=== PATIENT | male | born 1965 | race Caucasian/White ===

== ENCOUNTER 2021-10-13 09:55 | Emergency (ER) | payer OTHER, SELFPAY ==
[2021-10-13 10:05] VITALS: BP 144/93; PULSE 68; RESP 18; TEMP 36.4; O2SAT 100
--- NOTE | 2021-10-13 11:03 | ED.EYEPROB ---
HPI - Eye Problem General Chief complaint: Eye Problems Stated complaint: Left Eye Issues x5 Months Time Seen by Provider: 10/13/21 10:17 Source: patient and family Mode of arrival: ambulatory Limitations: no limitations History of Present Illness HPI Narrative: This is a 56 year old male that presents to the ER for left eye irritation for months. Reports he was initially evaluated by an well head pumper and diagnosed with a corneal abrasion. He felt better after treatment initially. Reports intermittent eye irritation that has been worsening over the last couple of weeks. No known injuries. Reports over the last couple of days the irritation in constant. Reports tearing. His vision is blurry. He also saw another eye doctor in the area a couple weeks ago who ruled out glaucoma. He has an appointment with Dr. Benavides in a couple of weeks. Denies fever, edema or vomiting. Related Data Allergies Allergy/AdvReac Type Severity Reaction Status Date / Time No Known Allergies Allergy Verified 10/13/21 10:08 Review of Systems Review of Systems: CONSTITUTIONAL: Denies fever EYES: Reports visual changes, redness, and discharge. All systems reviewed & are unremarkable except as noted in HPI and below Exam Narrative: GENERAL: Well-appearing, well-nourished, and in no acute distress. HEAD: Normocephalic, atraumatic. EYES: PERRLA and EOMI. Left eye tearing and conjunctival injection. Eyelid everted, no foreign bodies noted. Positive fluorescein stain uptake with 3mm corneal abrasion noted over the left pupil. Pressure left eye 12, right eye 17. Visual acuity 20/200 left eye, 20/100 right eye EXTREMITIES: Normal range of motion. No edema. SKIN: Warm, dry, no rash. NEURO: No focal deficits. Alert and oriented x3. PSYCH: Normal mood and affect Course Consultations Consultation #1: Spoke with Dr. Gilmore with [facility] ophthalmology. Patient will be called for a follow-up appointment in the clinic today. Date: 10/13/21 Time: 12:04 Vital Signs Vital signs: Vital Signs Temperature 97.6 F 10/13/21 10:05 Pulse Rate 68 10/13/21 10:05 Respiratory Rate 18 10/13/21 10:05 Blood Pressure 144/93 H 10/13/21 10:05 Pulse Oximetry 100 10/13/21 10:05 Temperature 97.6 F 10/13/21 10:05 Pulse Rate 68 10/13/21 10:05 Respiratory Rate 18 10/13/21 10:05 Blood Pressure 144/93 H 10/13/21 10:05 Pulse Oximetry 100 10/13/21 10:05 MDM - Eye Problem MDM Narrative Medical decision making narrative: Patient presents to the ER for ongoing irritation in the left eye for weeks. Reporting tearing, redness, and irritation. He is afebrile and nontoxic-appearing. Pupils are equal round and reactive. EOMs are intact. Visual acuity on the left 20/200, on the right 20/100. Patient was not wearing his glasses today. He does not wear any contacts. No foreign bodies noted in the eye. He was noted to have a 3 mm corneal abrasion over the pupil. Spoke with Dr. Gilmore with [facility] ophthalmology. Patient will be called for a follow-up appointment in the clinic today. Will be started on erythromycin ointment. Patient is stable and felt appropriate for further outpatient evaluation. He was given warnings to return to the ER Critical Care Time Critical Care Time Critical Care Time: No Discharge Plan Discharge Clinical Impression: Corneal abrasion Qualifiers: Encounter type: initial encounter Laterality: left Qualified Code(s): S05.02XA - Injury of conjunctiva and corneal abrasion without foreign body, left eye, initial encounter Patient Disposition: Home, Self-Care Condition: Stable Instructions: Antibiotic Form, Corneal Abrasion (ED) Additional Instructions: You should be called today to follow-up with ophthalmology at [facility] today in clinic. If you do not hear from them call to make an appointment to be seen Apply erythromycin ointment to the left eye 4 times daily for 5 days, unless otherwise advised by ophthalmology F
[2021-10-13] MEDS: ERYTHROMYCIN OPHTH OINTMENT 1 GM TUBE 1 APPLIC LEFT EYE (12:06)
[2021-10-13 12:25] VITALS: BP 140/88; PULSE 87; RESP 18; TEMP 36.6; O2SAT 97
== END 2021-10-13 12:26 | disposition home or self-care (01) ==
PROVIDERS: Emergency Provider Emergency Medicine; PCP Nurse Practitioner Family
DX: S05.02XA Injury of conjunctiva and corneal abrasion without foreign body, left eye, initial encounter (principal); X58.XXXA Exposure to other specified factors, initial encounter
CPT/HCPCS: 99283; A9270